=== PATIENT | female | born 1995 | race Caucasian/White ===

== ENCOUNTER 2017-02-25 22:29 | Emergency (ER) | payer OTHER ==
[~2017-02-25] VITALS: Ht 157.5 cm; Wt 62.6 kg
[~2017-02-25 22:29] MED LIST: ADVIL100 M2; AMOXICILLI400 MG/5 M PO; APAP W/CODEINE1 TA2 PO; APAP/CODEINE ELI5 M1 OR; APAP/CODEINE ELI5 M1 PO; APAP500 PO; AZITHROMYCIN 2250 MG; AZITHROMYCIN 2250 MG PO; BIRTH CONTROL SUBQ; BUPROPION; CEFTIN 250 MG250 MG PO; CITRATE OF MAG296 ML PO; DERMOPLAST SPRA56 ML; FLEXERIL PO; IBUPROFEN 800800 M1 PO; LANOLIN56 GM; MEDROL DOSPAK21 TA1; MEDROLDOSEPACK PO; MUCINEX TA600 MG/TA2 PO; NEURONTIN 300300 M1 PO; NOHOMEMEDICATIONS; NORCO 5-325 TA1 EACH PO; NORFLEX100 MG PO; PREDNISONE 10 M10 MG; PROVENTIL HFA6.7 G1 INH; SEROQUEL200 MG PO; TESSALON PERLE100 MG PO; TRAMADOL 50 MG50 MG PO; TRILEPTAL 300300 MG PO; TUCKS MEDICATE1 EAC1; TYLENOL325 MG PO; ULTRAM 50MG TAB50 MG PO; VENTOLIN HFA 1818 GM INH; WELLBUTRIN SR150 MG PO; WELLBUTRIN XL150 M2 PO; ZPAK PO; [UNRECOGNIZED DRUG - REMARK]
[2017-02-26] MEDS ORDERED: NAPROSYN500 MG PO (00:32)
[2017-02-26] MEDS ORDERED: TRAMADOL 50 MG50 MG PO (00:32)
[2017-02-26 00:52] VITALS: BP 0/0
== END 2017-02-26 00:53 | disposition left against medical advice (07) ==
LOC: ER 22:29
DX: S01.311A Laceration without foreign body of right ear, initial encounter (principal); S10.93XA Contusion of unspecified part of neck, initial encounter; F31.9 Bipolar disorder, unspecified; J45.909 Unspecified asthma, uncomplicated; F42.9 Obsessive-compulsive disorder, unspecified; G89.29 Other chronic pain; M25.559 Pain in unspecified hip; F17.210 Nicotine dependence, cigarettes, uncomplicated; Z88.8 Allergy status to other drugs, medicaments and biological substances; Y04.0XXA Assault by unarmed brawl or fight, initial encounter; Y93.89 Activity, other specified; Y92.89 Other specified places as the place of occurrence of the external cause; Y99.8 Other external cause status